=== PATIENT | male | born 1980 | race African-American/Black ===

== ENCOUNTER 2016-09-04 10:19 | Inpatient (IN) | payer OTHER ==
[2016-09-04 10:24] VITALS: BMI 34.0
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
[2016-09-04] MEDS ORDERED: VANCOMYCIN 1,500 MG in DEXTROSE 5%-WATER - 500 ML IVPB ONE (12:39)
[2016-09-04 13:06] LABS: BASOPHIL 0.6 % (0-2.0); EOSINOPHIL 2.6 % (0-4.5); MEAN PLT VOLUME 9.2 fl (7.5-11.1); NEUTROPHILS 58.2 % (42.8-82.8); PLATELET COUNT 234 K/MM3 (134-434); RDW 12.7 % (11.9-15.9); WHITE BLOOD COUNT 6.4 K/mm3 (4.0-10.0)
[2016-09-04 13:15] LABS: URINE APPEARANCE CLEAR; URINE BILIRUBIN NEGATIVE (NEGATIVE); URINE BLOOD NEGATIVE (NEGATIVE); URINE COLOR YELLOW; URINE GLUCOSE (UA) NEGATIVE (NEGATIVE); URINE KETONE NEGATIVE (NEGATIVE); URINE LEUK ESTERASE NEGATIVE (NEGATIVE); URINE NITRITE NEGATIVE (NEGATIVE); URINE PROTEIN NEGATIVE (NEGATIVE); URINE UROBILINOGEN NEGATIVE E.U./dl (0.2-1.0)
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
[2016-09-04 13:20] LABS: INR 1.1 (0.82-1.09); PROTHROMBIN TIME (PATIENT) 12.1 SEC (9.98-11.88)
[2016-09-04 13:23] LABS: ACTIVATED PTT 35.2 SECONDS (26.9-34.4)
[2016-09-04 13:45] LABS: ALBUMIN 3.7 g/dl (3.4-5.0); ANION GAP 9 (8-16); CALCIUM 9.5 mg/dL (8.5-10.1); CO2 27 mmol/L (21-32); COCKROFT - GAULT 171.95; GLUCOSE,RANDOM 127 mg/dL (74-106); SGOT/AST 20 U/L (15-37); SGPT/ALT 47 U/L (12-78)
[2016-09-04 13:46] LABS: ALK PHOS 117 U/L (45-117); BILIRUBIN,TOTAL 0.5 mg/dL (0.2-1.0); TOT PROT 7.6 g/dl (6.4-8.2)
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
[2016-09-04] MEDS ORDERED: INFLUENZA VACCINE 45 MCG/0.5 ML (MDV 16-17) IM ONE (15:35)
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
[2016-09-04] MEDS: LACTOBACILLUS ACIDOPHILUS 1 EACH TAB (FP) PO SCH (18:28)
[2016-09-04] MEDS: CLINDAMYCIN 600MG PREMIX IVPB 50 ML IVPB SCH (18:29)
[2016-09-04 22:09] LABS: HIV 1 & 2 AB NEGATIVE; HIV 1 AGp24 NEGATIVE
[2016-09-04] MEDS: cefTRIAXone 2 GM/100 ML BAG (PRE-DOCKED) IVPB SCH (22:14)
[2016-09-05] MEDS: cefTRIAXone 2 GM/100 ML BAG (PRE-DOCKED) IVPB SCH (00:06)
[2016-09-05] MEDS: CLINDAMYCIN 600MG PREMIX IVPB 50 ML IVPB SCH ×3 (03:12→17:45)
[2016-09-05 07:38] LABS: MCH 31.3 pg (25.7-33.7); MCHC 34.7 g/dl (32.0-35.9); MEAN CELL VOLUME 90.2 fl (80-96); MEAN PLT VOLUME 9.1 fl (7.5-11.1); PLATELET COUNT 239 K/MM3 (134-434); RDW 12.6 % (11.9-15.9); WHITE BLOOD COUNT 6.3 K/mm3 (4.0-10.0)
[2016-09-05 08:01] LABS: ALBUMIN 3.5 g/dl (3.4-5.0); ALK PHOS 116 U/L (45-117); ANION GAP 8 (8-16); BILIRUBIN,TOTAL 0.3 mg/dL (0.2-1.0); CALCIUM 9.5 mg/dL (8.5-10.1); CO2 31 mmol/L (21-32); CREATININE 1.1 mg/dL (0.7-1.3); GLUCOSE,RANDOM 154 mg/dL (74-106); SGOT/AST 15 U/L (15-37); SGPT/ALT 40 U/L (12-78); TOT PROT 7.3 g/dl (6.4-8.2)
[2016-09-05 08:35] LABS: C-REACTIVE PROTEIN 2.5 MG/DL (0.00-0.3)
[2016-09-05] MEDS: LACTOBACILLUS ACIDOPHILUS 1 EACH TAB (FP) PO SCH (09:55)
[2016-09-05] MEDS ORDERED: INFLUENZA VACCINE 45 MCG/0.5 ML (MDV 16-17) IM ONE (10:00)
--- NOTE | 2016-09-05 10:33 | PN ---
[id number] Sodium (Rocephin 2gm Ivpb (Pre-Docked)) 2 gm IVPB DAILY [facility] PRN Reason: Protocol Last Admin: 09/05/16 00:06 Dose: Not Given Clindamycin Phosphate (Cleocin 600 Mg Premix Ivpb -) 50 mls @ 100 mls/hr IVPB Q8H-IV [facility] Last Admin: 09/05/16 09:55 Dose: 100 mls/hr Lactobacillus Acidophilus (Bacid -) 1 tab PO DAILY [facility] Last Admin: 09/05/16 09:55 Dose: 1 tab - Objective Vital Signs: Vital Signs Temperature 98.2 F 09/05/16 06:00 Pulse Rate 76 09/05/16 06:00 Respiratory Rate 18 09/05/16 06:00 Blood Pressure 124/68 09/05/16 06:00 O2 Sat by Pulse Oximetry (%) 95 09/04/16 21:00 Constitutional: Yes: Calm Neck: Yes: WNL Cardiovascular: Yes: WNL Respiratory: Yes: WNL Gastrointestinal: Yes: WNL Edema: No Wound/Incision: Yes: Dressing Dry and Intact Labs: CBC, BMP 09/05/16 06:45 09/05/16 06:45 INR, PTT INR 1.10 (0.82-1.09) 09/04/16 12:57 Problem List - Problems (1) Abscess of hand including fingers Code(s): L02.519 - CUTANEOUS ABSCESS OF UNSPECIFIED HAND Qualifiers: Laterality: left Qualified Code(s): L02.512 - Cutaneous abscess of left hand (2) Cellulitis of hand, left Code(s): L03.114 - CELLULITIS OF LEFT UPPER LIMB (3) Penicillin allergy Code(s): Z88.0 - ALLERGY STATUS TO PENICILLIN Assessment/Plan (1) Abscess of hand including fingers Code(s): L02.519 - CUTANEOUS ABSCESS OF UNSPECIFIED HAND Qualifiers: Laterality: left Qualified Code(s): L02.512 - Cutaneous abscess of left hand (2) Cellulitis of hand, left Code(s): L03.114 - CELLULITIS OF LEFT UPPER LIMB Assessment/Plan IV ABX HAND SURGERY EVAL DR ESQUEDA FOR I AND D ID CONSULT TETANUS VACCINE 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
--- NOTE | 2016-09-05 16:47 | PN ---
Progress Note (short form) - Note Progress Note: Ortho Pt seen and examined s/p left 2nd MCP I&D Selected Entries 09/05/16 14:37 Temperature 98.4 F Laboratory Tests 09/05/16 09/05/16 06:45 06:45 WBC 6.3 Hgb 13.5 Hct 38.8 Plt Count 239 ESR 21 H + wound dehiscence, no pus/drainage able to be expressed, decr erythema and swelling nvi Microbiology 09/04/16 11:51 Hand - Left Gram Stain - Final 09/04/16 11:51 Hand - Left Wound Culture - Preliminary NO GROWTH OBTAINED AFTER 24 HOURS INCUBATION, REINCUBATED. a/p ABX as per ID iodoform wick was changed, sterile dressing was applied maintain elevation gentle rom exercises will follow d/w Dr. Henson
[2016-09-05] MEDS: NAPROXEN 500 MG TABLET (FP) PO PRN (23:51)
[2016-09-06] MEDS: CLINDAMYCIN 600MG PREMIX IVPB 50 ML IVPB SCH ×3 (03:07→17:15)
[2016-09-06 08:01] LABS: BASOPHIL 0.8 % (0-2.0); EOSINOPHIL 3.2 % (0-4.5); MCH 31.2 pg (25.7-33.7); MCHC 34.4 g/dl (32.0-35.9); MEAN CELL VOLUME 90.8 fl (80-96); PLATELET COUNT 250 K/MM3 (134-434); RDW 12.6 % (11.9-15.9); WHITE BLOOD COUNT 6.9 K/mm3 (4.0-10.0)
[2016-09-06 08:37] LABS: ALBUMIN 3.6 g/dl (3.4-5.0); ALK PHOS 114 U/L (45-117); ANION GAP 10 (8-16); BILIRUBIN,TOTAL 0.6 mg/dL (0.2-1.0); CALCIUM 9.3 mg/dL (8.5-10.1); CO2 29 mmol/L (21-32); COCKROFT - GAULT 143.18; CREATININE 1.2 mg/dL (0.7-1.3); GLUCOSE,RANDOM 140 mg/dL (74-106); SGOT/AST 13 U/L (15-37); SGPT/ALT 40 U/L (12-78); TOT PROT 7.2 g/dl (6.4-8.2)
[2016-09-06] MEDS: LACTOBACILLUS ACIDOPHILUS 1 EACH TAB (FP) PO SCH (09:13)
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
[2016-09-06] MEDS ORDERED: LEVOFLOXACIN 500 MG IVPB 100 ML IVPB SCH (10:00)
--- NOTE | 2016-09-06 12:18 | EKG ---
Test Reason : Blood Pressure : / mmHG Vent. Rate : 061 BPM Atrial Rate : 061 BPM P-R Int : 172 ms QRS Dur : 104 ms QT Int : 392 ms P-R-T Axes : 050 -31 000 degrees QTc Int : 394 ms NORMAL SINUS RHYTHM WITH SINUS ARRHYTHMIA LEFT AXIS DEVIATION NONSPECIFIC T WAVE ABNORMALITY ABNORMAL ECG Confirmed by ZULEYKA GALO MD ([id number]) on 09/06/2016 12:17:56 PM Referred By: SURESH STEPHENSON Confirmed By:ZULEYKA GALO MD
--- NOTE | 2016-09-06 14:39 | PN ---
Progress Note, Physician - Current Medication List Current Medications: Active Medications Clindamycin Phosphate (Cleocin 600 Mg Premix Ivpb -) 50 mls @ 100 mls/hr IVPB Q8H-IV ANASTACIA Last Admin: 09/06/16 09:13 Dose: 100 mls/hr Levofloxacin (Levaquin 500 Mg Premixed Ivpb -) 100 mls @ 100 mls/hr IVPB DAILY [facility] Last Admin: 09/06/16 11:24 Dose: 100 mls/hr Lactobacillus Acidophilus (Bacid -) 1 tab PO DAILY [facility] Last Admin: 09/06/16 09:13 Dose: 1 tab Naproxen (Naprosyn -) 500 mg PO BID PRN Last Admin: 09/05/16 23:51 Dose: 500 mg - Objective Vital Signs: Vital Signs Temperature 98.6 F 09/06/16 06:00 Pulse Rate 63 09/06/16 06:00 Respiratory Rate 20 09/06/16 06:00 Blood Pressure 127/68 09/06/16 06:00 O2 Sat by Pulse Oximetry (%) 98 09/05/16 21:00 Constitutional: Yes: Calm HENT: Yes: WNL Neck: Yes: WNL Cardiovascular: Yes: WNL Respiratory: Yes: WNL Gastrointestinal: Yes: WNL Edema: No Wound/Incision: Yes: Dressing Dry and Intact Labs: CBC, BMP 09/06/16 06:10 09/06/16 06:10 INR, PTT INR 1.10 (0.82-1.09) 09/04/16 12:57 Problem List - Problems (1) Abscess of hand including fingers Code(s): L02.519 - CUTANEOUS ABSCESS OF UNSPECIFIED HAND Qualifiers: Laterality: left Qualified Code(s): L02.512 - Cutaneous abscess of left hand (2) Cellulitis of hand, left Code(s): L03.114 - CELLULITIS OF LEFT UPPER LIMB Assessment/Plan (1) Abscess of hand including fingers Code(s): L02.519 - CUTANEOUS ABSCESS OF UNSPECIFIED HAND Qualifiers: Laterality: left Qualified Code(s): L02.512 - Cutaneous abscess of left hand (2) Cellulitis of hand, left Code(s): L03.114 - CELLULITIS OF LEFT UPPER LIMB Assessment/Plan IV ABX HAND SURGERY ON CASE ID CONSULT TETANUS VACCINE 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
[2016-09-07] MEDS: CLINDAMYCIN 600MG PREMIX IVPB 50 ML IVPB SCH ×2 (02:55→09:16)
[2016-09-07 07:46] LABS: BASOPHIL 0.6 % (0-2.0); MCH 31.7 pg (25.7-33.7); MCHC 35.2 g/dl (32.0-35.9); MEAN PLT VOLUME 8.7 fl (7.5-11.1); NEUTROPHILS 64.3 % (42.8-82.8); PLATELET COUNT 268 K/MM3 (134-434); RDW 12.6 % (11.9-15.9); WHITE BLOOD COUNT 8.3 K/mm3 (4.0-10.0)
[2016-09-07 08:20] LABS: ALBUMIN 3.6 g/dl (3.4-5.0); ALK PHOS 120 U/L (45-117); ANION GAP 11 (8-16); BILIRUBIN,TOTAL 0.4 mg/dL (0.2-1.0); CALCIUM 9.6 mg/dL (8.5-10.1); CO2 29 mmol/L (21-32); COCKROFT - GAULT 143.18; CREATININE 1.2 mg/dL (0.7-1.3); GLUCOSE,RANDOM 156 mg/dL (74-106); SGOT/AST 14 U/L (15-37); SGPT/ALT 37 U/L (12-78); TOT PROT 7.5 g/dl (6.4-8.2)
--- NOTE | 2016-09-07 09:15 | PN ---
Progress Note (short form) - Note Progress Note: Ortho Pt seen and examined s/p left 2nd MCP I&D Microbiology 09/04/16 11:51 Hand - Left Gram Stain - Final 09/04/16 11:51 Hand - Left Wound Culture - Final NO GROWTH AFTER 48 HOURS INCUBATION Laboratory Tests 09/05/16 09/07/16 06:45 06:00 WBC 8.3 Hgb 14.1 Hct 40.0 Plt Count 268 ESR 21 H + wound dehiscence (improved), no pus/drainage able to be expressed, decr erythema and swelling, incr ROM nvi a/p No further I & D required at the present time ABX as per ID- PICC line vs PO abx as per ID iodoform wick was changed, sterile dressing was applied maintain elevation gentle rom exercises d/c planning d/w Dr. Henson
[2016-09-07] MEDS: LACTOBACILLUS ACIDOPHILUS 1 EACH TAB (FP) PO SCH (09:16)
[2016-09-07] MEDS: ERTAPENEM SODIUM 1 GM in SODIUM CHLORIDE 50 ML IVPB SCH (10:32)
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
[2016-09-07] MEDS ORDERED: PICC LINE 8 ML FLUSH PROTOCOL IVPUSH PRN (15:26)
[2016-09-07] MEDS ORDERED: PT OWN MED DRAWER 7, Y5N ONE (20:42)
[2016-09-07] MEDS: NAPROXEN 500 MG TABLET (FP) PO PRN (20:48)
[2016-09-08] MEDS ORDERED: PT OWN MED DRAWER 7, Y5N ONE (09:04)
[2016-09-08] MEDS: ERTAPENEM SODIUM 1 GM in SODIUM CHLORIDE 50 ML IVPB SCH (10:28)
[2016-09-08] MEDS: LACTOBACILLUS ACIDOPHILUS 1 EACH TAB (FP) PO SCH (10:28)
[2016-09-08 11:05] VITALS: BP 148/88; PULSE 77; TEMP 99.3
== END 2016-09-08 11:20 | disposition home or self-care (01) | DRG 383 ==
LOC: JER 10:19 → JERFT 10:19 → JERBED 13:29 → J5S 14:39
PROVIDERS: ADMIT Family Medicine; ATTEND Family Medicine
PROC: 0H9GXZX Drainage of Left Hand Skin, External Approach, Diagnostic (ICD-10-PCS; principal; 2016-09-04)
PROC: 02HV33Z Insertion of Infusion Device into Superior Vena Cava, Percutaneous Approach (ICD-10-PCS; 2016-09-08)
DX: L03.114 Cellulitis of left upper limb (principal); L02.512 Cutaneous abscess of left hand; T81.30XD Disruption of wound, unspecified, subsequent encounter; Y83.8 Other surgical procedures as the cause of abnormal reaction of the patient, or of later complication, without mention of misadventure at the time of the procedure; L50.0 Allergic urticaria; T36.1X5A Adverse effect of cephalosporins and other beta-lactam antibiotics, initial encounter; M00.9 Pyogenic arthritis, unspecified; Z88.0 Allergy status to penicillin; Z48.02 Encounter for removal of sutures
CPT/HCPCS: 36415; 36569; 73130-TC-LT; 77001-TC; 80053; 81003; 83605; 85025; 85027; 85610; 85651; 85730; 86140; 87040; 87070; 87205; 87389; 93005; 93010; 99282-25; C1751; G0008; Q2037

== ENCOUNTER 2017-07-29 17:26 | Emergency (ER) | payer OTHER ==
[2017-07-29 17:37] VITALS: BP 147/90; PULSE 105; TEMP 98; BMI 34.7
[2017-07-29] MEDS ORDERED: DIPHTH,PERTUSS(ACELL),TET 0.5 ML DISP.SYRIN IM ONE (18:28)
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
[2017-07-29] MEDS ORDERED: ceFAZolin SODIUM 1 GM VIAL IM ONE (19:30)
[2017-07-29] MEDS ORDERED: IBUPROFEN 600 MG TABLET (FP) PO ONE ×2 (19:37)
== END 2017-07-29 20:59 | disposition home or self-care (01) ==
LOC: JERFT 17:26
PROC: 3E0234Z Introduction of Serum, Toxoid and Vaccine into Muscle, Percutaneous Approach (ICD-10-PCS; principal; 2017-07-29)
PROC: 3E02329 Introduction of Other Anti-infective into Muscle, Percutaneous Approach (ICD-10-PCS; 2017-07-29)
PROC: 0HQ0XZZ Repair Scalp Skin, External Approach (ICD-10-PCS; 2017-07-29)
DX: S01.01XA Laceration without foreign body of scalp, initial encounter (principal); S51.811A Laceration without foreign body of right forearm, initial encounter; S41.112A Laceration without foreign body of left upper arm, initial encounter; S61.011A Laceration without foreign body of right thumb without damage to nail, initial encounter; X99.1XXA Assault by knife, initial encounter; Y93.89 Activity, other specified; Y92.038 Other place in apartment as the place of occurrence of the external cause; Y99.8 Other external cause status; Y07.499 Other family member, perpetrator of maltreatment and neglect
CPT/HCPCS: 70450-TC; 90715; 99281-25

== ENCOUNTER 2018-03-26 06:33 | Emergency (ER) | payer BC, OTHER ==
[2018-03-26 06:44] VITALS: BP 125/75; PULSE 62; TEMP 98; BMI 34.7
[2018-03-26] MEDS ORDERED: CEPHALEXIN MONOHYDRATE 500 MG CAPSULE (UD) PO ONE (07:40)
--- NOTE | 2018-03-26 07:42 | PDOC ---
History of Present Illness - General Chief Complaint: Eye Problem Stated Complaint: SWELLING,LT EYE Time Seen by Provider: 03/26/18 07:14 History Source: Patient Exam Limitations: No Limitations - History of Present Illness Initial Comments: 03/26/18 07:38 [place] 37 YOM with left lower lid/periorbital eye swelling x 5 days. + purulence and drainage today. Started off with suspected insect bite about 5 days ago, admits to scratching and wiping the area. No f/c. No paresthesia, weakness, blindness or eye pain/redness. Went to urgent care center 3 days ago, rxd valcyclovir but did not take; took old azithromycin without relief. Denies contact lenses use, +glasses. Denies addition trauma. No headache or dizziness. Past History - Past Medical History Allergies/Adverse Reactions: Allergies Allergy/AdvReac Type Severity Reaction Status Date / Time Penicillins Allergy Difficulty Verified 03/26/18 06:43 Breathing Home Medications: Ambulatory Orders Cephalexin Monohydrate [Keflex -] 500 mg PO Q8H 7 Days #21 capsule 03/26/18 COPD: No DVT: No - Immunization History Immunization Up to Date: Yes - Suicide/Smoking/Psychosocial Hx Smoking History: Never smoked Have you smoked in the past 12 months: No Information on smoking cessation initiated: No Hx Alcohol Use: No Drug/Substance Use Hx: No Substance Use Type: None Hx Substance Use Treatment: No Review of Systems - Review of Systems Able to Perform ROS?: Yes Comments:: 03/26/18 07:35 Constitutional: no fevers or chills. HEENT: no headache or dizziness. No congestion. No visual/hearing disturbances. no eye pain or discharge, no loss of vision. MUSCULOSKELETAL: No joint pain and swelling. No neck or back pain. SKIN: +redness or skin changes, no discharge, no rash. +facial wound Hematologic: no easy bruising/bleeding. NEUROLOGIC: No headache, dizziness, LOC or altered mental status. No weakness, numbness or tingling. All other systems reviewed and negative, or as documented in HPI. *Physical Exam - Vital Signs Last Vital Signs Temp Pulse Resp BP Pulse Ox 98.0 F 62 20 125/75 98 03/26/18 06:43 03/26/18 06:43 03/26/18 06:43 03/26/18 06:43 03/26/18 06:43 - Physical Exam Comments: 03/26/18 07:36 General: Well appearing, awake and alert, NAD. HEENT: NCAT, PERRL, EOMI, clear conjunctiva, anicteric, moist mucus membranes, clear oropharynx, no oral lesions.. visual acuity w/o corrective lenses 20/40 bilaterally. left lower preseptal edema, mild erythema and warmth, no tenderness, soft, no fluctuance. overlying crusted over wound w/o purulent drainage. Neck: neck supple, FROM Resp: breathing comfortably, no respiratory distress CVS: 2+ peripheral pulses MSK: PARDO x4 Neuro: alert, oriented appropriately; CN II-XII grossly intact, particularly CN V motor and sensation intact. Skin: warm and well perfused, cap refill <2 sec, normal color Medical Decision Making - Medical Decision Making 03/26/18 07:40 37 YOM with left lower lid/ facial cellulitis 2/2 insect bite, crusting over noted. no f/c or systemic sx vitals wnl ocular exam normal, preserved visual acuity as documented no ocular or orbital involvement to suggest orbital cellulitis, clinical exam c/ w preseptal uncomplicated cellulitis less likely valcyclovir, as no vesicles or CN V involvement. well appearing. area of crusting over from insect bite and surrounding edema/puffiness, cool compresses and otc tyl/motrin as needed keflex TID course x 7 days, unlikely to cross react with pcn, and instructions to the pt about low risk of allergic reaction, but to observe. DC in stable condition, return precautions given - f/c, s/s infection, neuro changes, progressive skin changes. 03/26/18 07:43 *DC/Admit/Observation/Transfer Diagnosis at time of Disposition: Preseptal cellulitis of left lower eyelid - Discharge Dispostion Disposition: HOME Condition at time of disposition: Improved Decision to Admit order: No - Prescriptions Prescriptions: Cephalexin Monohydrate [Keflex -] 500 mg PO Q8H 7 Days #21 capsule - Referrals Referrals: Edgar Hogan MD [Primary Care Provider] - - Patient Instructions Printed Discharge Instructions: DI for Cellulitis -- Adult, DI for Wound Infection Additional Instructions: You most likely have cellulitis of your lower lid that is uncomplicated secondary to an insect wound. Keep the area clean and dry, cool compresses to be applied, may take Tylenol and/or Motrin as needed take Keflex 3 times a day for 7 days for the cellulitis, there is very low chance of cross-reactivity with her penicillin ALLERGY but monitor for hives and airway involvement/ ALLERGIC reaction when taking the Keflex. follow up with primary doctor - Post Discharge Activity
[2018-03-26] MEDS ORDERED: CEPHALEXIN MONOHYDRATE 500 MG CAPSULE (UD) ONE (08:12)
== END 2018-03-26 08:16 | disposition home or self-care (01) ==
LOC: JER 06:33
PROC: 4A07X0Z Measurement of Visual Acuity, External Approach (ICD-10-PCS; principal; 2018-03-26)
DX: L03.213 Periorbital cellulitis (principal)
CPT/HCPCS: 99282-25

== ENCOUNTER 2018-12-29 17:28 | Emergency (ER) | payer BC | END 2018-12-29 20:54 | disposition home or self-care (01) | LOC: JER 17:28 ==

== ENCOUNTER 2019-07-12 09:33 | Emergency (ER) | payer BC ==
[2019-07-12 09:42] VITALS: BP 115/79; PULSE 74; TEMP 98.3; BMI 32.1
--- NOTE | 2019-07-12 10:06 | PDOC ---
History of Present Illness - General Chief Complaint: Edema Stated Complaint: Nose pain Time Seen by Provider: 07/12/19 09:47 History Source: Patient Exam Limitations: No Limitations Past History - Travel Traveled outside of the country in the last 30 days: No Close contact w/someone who was outside of country & ill: No - Past Medical History Allergies/Adverse Reactions: Allergies Allergy/AdvReac Type Severity Reaction Status Date / Time Penicillins Allergy Difficulty Verified 07/12/19 09:42 Breathing Home Medications: Ambulatory Orders Atorvastatin Ca [Lipitor] 20 mg PO HS 12/29/18 Glimepiride 2 mg PO BID 12/29/18 Insulin Glargine,Hum.rec.anlog [Basaglar Kwikpen U-100] 10 unit SQ DAILY levoFLOXacin [Levaquin -] 750 mg PO DAILY #7 tablet 12/29/18 Hydrocortisone 1% Ointment [Hytone 1% Ointment -] 1 applic TP BID 07/12/19 Mupirocin Ointment [Bactroban 2% Ointment -] 1 applic TP TID #1 tube 07/12/19 COPD: No DVT: No Diabetes: Yes (IDDM) - Immunization History Immunization Up to Date: Yes - Psycho Social/Smoking Cessation Hx Smoking History: Never smoked Have you smoked in the past 12 months: No Information on smoking cessation initiated: No Hx Alcohol Use: No Drug/Substance Use Hx: No Substance Use Type: None Hx Substance Use Treatment: No Review of Systems - Review of Systems Able to Perform ROS?: Yes Comments:: 07/12/19 10:09 CONSTITUTIONAL: Absent: fever, chills, diaphoresis, generalized weakness, malaise, loss of appetite HEENT: Absent: rhinorrhea, nasal congestion, throat pain, throat swelling, difficulty swallowing, mouth swelling, ear pain, eye pain, visual Changes SKIN: Swelling to the right nostril. Absent: rash, itching, pallor NEUROLOGIC: Absent: headache, focal weakness or paresthesias, dizziness, unsteady gait, seizure, mental status changes, bladder or bowel incontinence PSYCHIATRIC: Absent: anxiety, depression, suicidal or homicidal ideation, hallucinations. Is the patient limited Khmer proficient: No *Physical Exam - Vital Signs Last Vital Signs Temp Pulse Resp BP Pulse Ox 98.3 F 74 17 115/79 99 07/12/19 09:40 02/26/20 09:40 07/12/19 09:40 07/12/19 09:40 07/12/19 09:40 - Physical Exam 07/12/19 10:10 GENERAL: The patient is awake, alert, and fully oriented, in no acute distress. HEAD: Normal with no signs of trauma. EYES: Pupils equal, round and reactive to light, extraocular movements intact, sclera anicteric, conjunctiva clear. HEENT: No nasal congestion or rhinorrhea. No sinus Tenderness. Mucous membranes are moist. No tonsillar erythema, exudate or edema. Uvula is midline. No TM bulging , dullness or erythema EXTREMITIES: Normal range of motion, no edema. NEUROLOGICAL: Normal speech, normal gait. PSYCH: Normal mood, normal affect. SKIN: Warm, Dry, normal turgor. Red erythematous appearance to the right nostril with associated edema. Patient also with honey crusted lesions over the right nostril. Medical Decision Making - Medical Decision Making 07/12/19 10:11 The patient is a 38-year-old male past medical history of insulin-dependent diabetes, presents to the emergency department today for swelling to his right nostril. He states that he started with a small bump on his nose on Wednesday. He was started on Levaquin and hydrocortisone cream by his primary care doctor. This morning he woke up and his nose was more swollen and red. He also notes there was a dry yellow crust to the nose. Denies fevers, chills, congestion, difficulty breathing, eye pain and visual changes. PCP: Dr. Hogan A/P: Cellulitis On exam patient with an erythematous and edematous right nostril with a honey crusted-like lesion consistent with a cellulitis and superimposed impetigo. We will continue the patient on his Levaquin as patient is at risk for Pseudomonas with his diabetes. Added Bactroban and stop the hydrocortisone cream as hydrocortisone could make the infection worse. Discharge home with strict return precautions to follow-up with his primary care doctor on Wednesday for wound check. Explained to the patient that if he cannot return to see his primary care doctor on Wednesday he needs to come back to the ER to have this looked at. Also explained to the patient if he develops fevers or if this swelling or redness doubles in size overnight he needs to return to the ER for probable admission. I discussed the physical exam findings, ancillary test results and final diagnoses with the patient. I answered all of the patient's questions. The patient was satisfied with the care received and felt comfortable with the discharge plan and treatment plan. The Patient agrees to follow up with the primary care physician/specialist within 24-72 hours. Return precautions were given. Discharge - Discharge Information Problems reviewed: Yes Clinical Impression/Diagnosis: Cellulitis Qualifiers: Site of cellulitis: face Qualified Code(s): L03.211 - Cellulitis of face Condition: Stable Disposition: HOME - Admission No - Follow up/Referral Referrals: Edgar Hogan MD [Primary Care Provider] - Call tomorrow (Call tomorrow for Wednesday appointment for wound check) - Patient Discharge Instructions Patient Printed Discharge Instructions: DI for Cellulitis -- Adult Additional Instructions: You have cellulitis. This is a skin infection. Take the Levaquin as previously prescribed by your physician. Finish the entire dose even if you feel better. You may use warm water soaks to the area. Please do this approximately 4-5 times a day. Please avoid shaving the skin around the area of redness. Please use the mupirocin ointment on your nose and in your nose 3 times a day to help with the infection. You may take Tylenol or Motrin as needed for pain. Please follow up with your primary care doctor on Wednesday. If you cannot see your primary care doctor, please return to the ER for a wound check. Return to the emergency department if you have worsening redness, fevers, increasing pain, or have any changes in your symptoms. - Post Discharge Activity Work/Back to School Note: Back to Work
== END 2019-07-12 10:09 | disposition home or self-care (01) ==
LOC: JERFT 09:33
DX: L03.211 Cellulitis of face (principal); Z88.0 Allergy status to penicillin; E11.9 Type 2 diabetes mellitus without complications
CPT/HCPCS: 99282-25

== ENCOUNTER 2022-07-23 07:58 | Day surgery (SDC) | payer OTHER ==
[2022-07-20 14:20] VITALS: BMI 32.1
[2022-07-23] MEDS ORDERED: MIDAZOLAM HCL 2 MG/2 ML SINGLE DOSE VIAL ONE ×3 (08:50→11:48)
[2022-07-23] MEDS ORDERED: BUPIVACAINE HCL/PF 0.5% (5 MG/ML) 30 ML VIAL IJ ONE (10:52)
[2022-07-23] MEDS ORDERED: DEXAMETHASONE SOD PHOSPHATE/PF 10 MG/ML SDV ONE (10:52)
[2022-07-23] MEDS ORDERED: BUPIVACAINE HCL/PF 0.5% (5MG/ML) 10 ML VIAL ONE (11:11)
[2022-07-23] MEDS ORDERED: oxyCODONE HCL 5 MG TABLET PO PRN (11:17)
[2022-07-23] MEDS ORDERED: ONDANSETRON 4 MG/2 ML VIAL IVPUSH PRN (11:17)
[2022-07-23] MEDS ORDERED: ACETAMINOPHEN 1000 MG/100 ML BAG IVPB ONE (11:17)
[2022-07-23] MEDS ORDERED: LACTATED RINGERS SOLUTION 1,000 ML IV SCH (11:30)
[2022-07-23] MEDS ORDERED: PROPOFOL 60 ML ONE (11:34)
[2022-07-23] MEDS ORDERED: ONDANSETRON 4 MG/2 ML VIAL ONE (12:14)
[2022-07-23] MEDS ORDERED: PROPOFOL 20 ML ONE ×2 (12:16→12:56)
[2022-07-23] MEDS ORDERED: methylPREDNISolone ACET (DEPO) 40 MG/1 ML VIAL ONE (13:09)
[2022-07-23] MEDS ORDERED: LIDOCAINE HCL 1%, 10 MG/ML (20ML VIAL) ONE (13:10)
[2022-07-23 14:38] VITALS: PULSE 68; RESP 20; TEMP 97.9
[2022-07-23 15:43] VITALS: BP 114/72
== END 2022-07-23 15:25 | disposition home or self-care (01) ==
LOC: FASU 07:58
PROVIDERS: ATTEND Orthopaedic Surgery Sports Medicine
PROC: 0RBK4ZZ Excision of Left Shoulder Joint, Percutaneous Endoscopic Approach (ICD-10-PCS; principal; 2022-07-23 12:00)
DX: M17.12 Unilateral primary osteoarthritis, left knee (principal); M24.012 Loose body in left shoulder; M75.52 Bursitis of left shoulder; M75.42 Impingement syndrome of left shoulder
CPT/HCPCS: 82962; 94760

== ENCOUNTER 2022-11-03 04:42 | Day surgery (SDC) | payer OTHER ==
[2022-10-28 09:50] VITALS: BMI 34.7
[2022-11-03 10:43] VITALS: TEMP 97.7
[2022-11-03 11:11] VITALS: BP 108/55; PULSE 51; RESP 20
== END 2022-11-03 11:25 | disposition home or self-care (01) ==
LOC: JASU-ENDO 04:42
PROVIDERS: ATTEND Student in an Organized Health Care Education/Training Program
PROC: 0DBN8ZX Excision of Sigmoid Colon, Via Natural or Artificial Opening Endoscopic, Diagnostic (ICD-10-PCS; principal; 2022-11-03 09:30)
DX: D12.5 Benign neoplasm of sigmoid colon (principal); K57.30 Diverticulosis of large intestine without perforation or abscess without bleeding; Z79.4 Long term (current) use of insulin
CPT/HCPCS: 82962; 88305-TC